=== PATIENT | male | born 1955 | race Caucasian/White ===

== ENCOUNTER 2017-09-03 09:18 | Emergency (ER) | payer OTHER ==
[2017-09-03 09:33] VITALS: RESP 14; TEMP 97.1
[2017-09-03 10:59] VITALS: BP 106/73; PULSE 94; O2SAT 99
== END 2017-09-03 10:16 | disposition home or self-care (01) | DRG 554 ==
LOC: ED 09:18
DX: M10.9 Gout, unspecified (principal); M79.671 Pain in right foot; M79.672 Pain in left foot
CPT/HCPCS: 99282